=== PATIENT | male | born 1950 | race Caucasian/White ===

== ENCOUNTER 2018-11-29 21:27 | Emergency (ER) | payer MEDICARE ==
[2018-11-29 21:56] LABS: BASOPHILS % (AUTO) 0.7 % (0.0-5.0); EOSINOPHILS % (AUTO) 0.8 % (0.0-8.0); HEMATOCRIT 35.7 % (42-54); LYMPHOCYTES % (AUTO) 11.6 % (21.0-51.0); MEAN CORPUSCULAR HEMOGLOBIN 35.3 pg (27.0-33.0); MEAN CORPUSCULAR HGB CONC 34.1 g/dL (32.0-36.0); MEAN CORPUSCULAR VOLUME 103.4 fL (79-99); MONOCYTES % (AUTO) 6.5 % (3.0-13.0); NEUTROPHILS % (AUTO) 80.4 % (40.0-77.0); NUCLEATED RED BLOOD CELLS 0.1 % (0.0-0.19); PLATELET COUNT (AUTO) 179 K/uL (130-400); RED BLOOD CELL COUNT(AUTO) 3.45 MIL/uL (4.50-6.20); RED CELL DISTRIBUTION WIDTH 13.3 % (11.0-15.5)
[2018-11-29 22:12] LABS: CREATININE 1.9 mg/dL (0.5-1.5); POTASSIUM 4.2 mmol/L (3.5-5.1)
== END 2018-11-29 23:57 | disposition home or self-care (01) ==
LOC: EDH 21:27
DX: E10.9 Type 1 diabetes mellitus without complications (principal); I10 Essential (primary) hypertension; Z88.1 Allergy status to other antibiotic agents; Z88.2 Allergy status to sulfonamides
CPT/HCPCS: 36415; 80048; 82948; 85025

== ENCOUNTER 2020-10-10 07:41 | Day surgery (SDC) | payer MEDICARE ==
[~2020-10-10] VITALS: Ht 172.7 cm; Wt 117.9 kg
[~2020-10-10 07:41] MED LIST: 0.9%NACL 1000ML 1,000 ML IV ONE; ALLO100T PO; AMLO-257 PO; ASPI-556 PO; CITA40TA6 PO; CLOP75TA32 PO; DOCU-116 PO; FURO40TA5 PO; ISOS60TA77 PO; LEVO125T11 PO; LOSA50TA64 PO; METO-409 PO; RANO10005 PO; SIMV40TA59 PO
[2020-10-10 09:18] VITALS: BP 173/63
[2020-10-10] MEDS ORDERED: PROPOFOL 10 MG/ML 20ML VIAL IV ONE ×2 (10:03→10:04)
[2020-10-10 10:40] VITALS: BP 120/54
[2020-10-10 10:55] VITALS: BP 147/57
[2020-10-10 11:10] VITALS: BP 148/58
== END 2020-10-10 11:10 | disposition home or self-care (01) ==
LOC: DAH 07:41 → ENDO 07:41
PROVIDERS: ATTEND Internal Medicine Gastroenterology
DX: D50.9 Iron deficiency anemia, unspecified (principal); K63.5 Polyp of colon; K62.1 Rectal polyp; K29.70 Gastritis, unspecified, without bleeding; K25.9 Gastric ulcer, unspecified as acute or chronic, without hemorrhage or perforation; I25.10 Atherosclerotic heart disease of native coronary artery without angina pectoris; R53.1 Weakness; E11.9 Type 2 diabetes mellitus without complications; Z86.73 Personal history of transient ischemic attack (TIA), and cerebral infarction without residual deficits; J44.9 Chronic obstructive pulmonary disease, unspecified; Z79.4 Long term (current) use of insulin; Z79.899 Other long term (current) drug therapy; Z20.822 Contact with and (suspected) exposure to COVID-19
CPT/HCPCS: 43239; 45385; 82948 ×2; 87635; 93005; A4215; A4221; A4222; A4223; A4606; A4620; A4657; A4663; C9803; J2704 ×2; J7030